=== PATIENT | male | born 1980 | race Hispanic/Latino ===

== ENCOUNTER → 2016-07-01 | Outpatient (REF) | payer OTHER | LOC: M SMT 13:00 | PROVIDERS: ATTEND Urology | DX: Z30.2 Encounter for sterilization (principal) ==

== ENCOUNTER → 2016-12-13 | Outpatient (REF) | payer OTHER ==
[2016-12-13 11:13] LABS: IMMMOTILE SPERM CENTRIFUGED ABSENT (ABSENT); IMMOTILE SPERM ABSENT (ABSENT); MOTILE SPERM ABSENT (ABSENT); MOTILE SPERM CENTRIFUGED ABSENT (ABSENT)
== END ==
LOC: M SMT 10:34
PROVIDERS: ATTEND Urology
DX: Z30.2 Encounter for sterilization (principal)

== ENCOUNTER 2020-01-06 18:05 | Emergency (ER) | payer OTHER ==
[~2020-01-06 18:05] MED LIST: ASPI-1 PO; BYDU1INJ SC; FENO50CA PO; IBUP200T45 PO; JARD1TAB3 PO; LISI-538 PO; METF10004 PO; MULT-4 PO; NIFE30TA50 PO; PRAZ2CAP PO; PRED10TA2 PO; VITA50005 PO; ZOLO100T PO; jardiance PO
[2020-01-06] MEDS ORDERED: BOOSTRIX/ADACEL VACCINE (DIPHTH/PERTUSS/ACELL/TETANUS) 0.5ML SYR IM ONE (18:45)
[2020-01-06 20:29] LABS: HEMATOCRIT 44.3 % (42.0-52.0); HEMOGLOBIN 16.6 g/dl (13.5-17.5); MEAN CORPUSCULAR HEMOGLOBIN 33.7 pg (27.0-33.0); MEAN CORPUSCULAR HGB CONC 37.5 g/dl (32.0-36.5); PLATELET COUNT, AUTOMATED 184 10^3/uL (150-450); RED BLOOD COUNT 4.92 10^6/uL (4.30-6.10); WHITE BLOOD COUNT 6.8 10^3/uL (4.0-10.0)
[2020-01-06 22:18] LABS: ACETAMINOPHEN LEVEL < 2.0 UG/ML (10.0-30.0); ALBUMIN 3.3 GM/DL (3.2-5.2); ALT/SGPT 77 U/L (12-78); BILIRUBIN,DIRECT < 0.1 MG/DL (0.0-0.2); BILIRUBIN,TOTAL 0.9 MG/DL (0.2-1.0); BLOOD UREA NITROGEN 19 MG/DL (7-18); CALCIUM LEVEL 7.8 MG/DL (8.5-10.1); CARBON DIOXIDE LEVEL 25 MEQ/L (21-32); CHLORIDE LEVEL 103 MEQ/L (98-107); CREATININE FOR GFR 0.78 MG/DL (0.70-1.30); ETHYL ALCOHOL (ETHANOL) 0.397 % (0.000-0.010); GLOMERULAR FILTRATION RATE > 60.0 (>60); GLUCOSE, FASTING 213 MG/DL (70-100); POTASSIUM SERUM 4.3 MEQ/L (3.5-5.1); SALICYLATE LEVEL < 1.7 MG/DL (5.0-30.0); SODIUM LEVEL 137 MEQ/L (136-145); THYROID STIMULATING HORMONE 0.277 uIU/ML (0.358-3.740); TOTAL PROTEIN 7.2 GM/DL (6.4-8.2)
[2020-01-06 23:17] VITALS: BP 147/70
--- NOTE | 2020-01-17 13:00 | REP ---
LEFT HAND THIRD DIGIT 4-VIEWS REASON FOR EXAM: Trauma. PRIORS: None. FINDINGS: There is no acute fracture or destructive osseous lesion. MTDD
--- NOTE | 2020-01-25 15:02 | ECGEPIP ---
[facility] - ED Test Date: 2020-01-06 Pat Name: FAB SUAZO Department: Room: - Gender: Male Operations Executive: MAINOR : 1980 Requested By: SKY Ware Order Number: [id number] Reading MD: Rosalia Unger Measurements Intervals [place] Rate: 106 P: 44 [place]: 125 QRS: -5 QRSD: 109 T: 0 QT: 347 QTc: 462 Interpretive Statements SINUS TACHYCARDIA ABNORMAL RHYTHM ECG NSTTW ABN SEE SCANNED DOWNTIME REPORT
== END 2020-01-06 23:23 | disposition home or self-care (01) ==
LOC: M ED 18:05
DX: F10.120 Alcohol abuse with intoxication, uncomplicated (principal); R00.0 Tachycardia, unspecified; E11.9 Type 2 diabetes mellitus without complications; I10 Essential (primary) hypertension; M54.9 Dorsalgia, unspecified; F32.9 Major depressive disorder, single episode, unspecified; Z79.84 Long term (current) use of oral hypoglycemic drugs; Z79.82 Long term (current) use of aspirin; Z79.899 Other long term (current) drug therapy; Z88.8 Allergy status to other drugs, medicaments and biological substances
CPT/HCPCS: 73140; 80048; 80076; 84443; 85027; 90471; 90715; 93005; 93041; 94760; 99284; G0480

== ENCOUNTER 2020-01-19 12:41 | Emergency (ER) | payer OTHER ==
[~2020-01-19] VITALS: Ht 190.5 cm; Wt 115.9 kg
[2020-01-19 12:52] VITALS: BP 136/85
== END 2020-01-19 14:35 | disposition left against medical advice (07) ==
LOC: EDBD 12:41 → M ED 12:41
DX: F10.10 Alcohol abuse, uncomplicated (principal); E11.9 Type 2 diabetes mellitus without complications; I10 Essential (primary) hypertension; F17.210 Nicotine dependence, cigarettes, uncomplicated; Z79.82 Long term (current) use of aspirin; Z79.899 Other long term (current) drug therapy; Z88.8 Allergy status to other drugs, medicaments and biological substances